=== PATIENT | female | born 1975 | race Caucasian/White ===

== ENCOUNTER 2018-07-28 12:00 | Emergency (ER) | payer BC ==
[~2018-07-28] VITALS: Ht 167.6 cm; Wt 77.3 kg
[~2018-07-28 12:00] MED LIST: BENZ30CR2 TP; BUPR150T8 PO; DIPH-735 PO; FIORINAL PO; FLUC150T22; MAGN400C PO; PER10325T PO
[2018-07-28 12:46] LABS: CLARITY,URINE CLEAR (Clear); COLOR,URINE STRAW (Yellow); GLUCOSE, URINE NEGATIVE (Neg); KETONES,URINE NEGATIVE (Neg); LEUKOCYTE ESTERASE ,URINE NEGATIVE (Neg); NITRITES, URINE NEGATIVE (Neg); OCCULT BLOOD,URINE NEGATIVE (Neg); PROTEIN,URINE NEGATIVE (Neg); UROBILINOGEN,URINE 0.2 E.U/dL (0.2-1.0)
[2018-07-28 12:49] LABS: UA COLLECTION TYPE CLN CATCH MIDSTREAM
[2018-07-28 12:50] LABS: URINE HCG NEGATIVE (NEG)
[2018-07-28 12:59] LABS: BASOPHILS # (AUTO) 0.1 X10'3 (0-0.2); BASOPHILS % (AUTO) 1.2 % (0-1); HEMATOCRIT 44.6 % (35.0-45.0); HEMOGLOBIN 15.3 g/dl (12.0-16.0); LYMPHOCYTES # (AUTO) 1.4 X10'3 (1.1-4.8); LYMPHOCYTES % (AUTO) 30.1 % (21-51); MEAN CORPUSCULAR HEMOGLOBIN 31.2 PG (27.0-31.0); MEAN CORPUSCULAR HGB CONC 34.3 g/dL (33.0-36.5); MEAN PLATELET VOLUME 8.3 FL (7.4-10.4); MONOCYTES # (AUTO) 0.2 X10'3 (0-0.9); MONOCYTES % (AUTO) 4.2 % (2-12); NEUTROPHILS % (AUTO) 63.5 % (42-75); PLATELET COUNT 263 X10'3 (140-440); RED CELL DISTRIBUTION WIDTH 13.4 % (11.5-14.5); WHITE BLOOD COUNT 4.7 X10'3 (4.5-11.0)
[2018-07-28 13:17] LABS: ALANINE AMINOTRANSFERASE 64 U/L (12-78); ALBUMIN 4.4 G/DL (3.4-5.0); ALBUMIN/GLOBULIN RATIO 1.3 (1.1-1.5); ALKALINE PHOSPHATASE 101 IU/L (46-116); AMYLASE 56 U/L (25-115); ANION GAP 10 (8-16); ASPARTATE AMINO TRANSFERASE 25 U/L (10-37); BILIRUBIN,TOTAL 0.2 MG/DL (0.1-1.0); BLOOD UREA NITROGEN 14 MG/DL (7-18); BUN/CREATININE RATIO 18.4 (6.6-38.0); CHLORIDE 104 MMOL/L (99-107); CREATININE 0.76 MG/DL (0.40-0.90); GLUCOSE 98 MG/DL (70-104); LIPASE 172 U/L (73-393); POTASSIUM 3.9 MMOL/L (3.5-5.1); SODIUM 140 MMOL/L (135-145); TOTAL CARBON DIOXIDE 25.7 MMOL/L (24-32); TOTAL PROTEIN 7.8 G/DL (6.4-8.2); eGFR 84 ML/MIN
[2018-07-28] MEDS ORDERED: PHEN16.241 PO (16:13)
[2018-07-28 16:41] VITALS: BP 135/86
== END 2018-07-28 16:42 | disposition home or self-care (01) ==
LOC: ER 12:01
DX: R19.7 Diarrhea, unspecified (principal); R10.84 Generalized abdominal pain; A01.00 Typhoid fever, unspecified; G89.29 Other chronic pain; Z88.6 Allergy status to analgesic agent; Z79.899 Other long term (current) drug therapy
CPT/HCPCS: 36415; 80053; 81003; 81025; 82150; 83605; 83690; 85025; 85610; 87040; 99283